=== PATIENT | male | born 1990 | race Caucasian/White ===

== ENCOUNTER 2017-05-06 10:31 | Emergency (ER) | payer OTHER ==
[~2017-05-06] VITALS: Ht 167.6 cm; Wt 68.0 kg
[2017-05-06 10:35] VITALS: BP 146/81; Ht 167.6 cm; Wt 68.0 kg
== END 2017-05-06 11:05 | disposition other institution (70) ==
LOC: ED 10:31
DX: Z02.89 Encounter for other administrative examinations (principal)

== ENCOUNTER 2017-07-06 15:48 | Emergency (ER) | payer MEDICAID ==
[~2017-07-06] VITALS: Ht 167.6 cm; Wt 65.4 kg
[2017-07-06 16:00] VITALS: Ht 167.6 cm; Wt 65.4 kg
[2017-07-06 18:27] LABS: BASOPHIL % 0.4 % (0-2); PLATELET COUNT 356 x10^3mcL (130-400); RED CELL DISTRIBUTION WIDTH 13.5 % (11.5-14.5)
[2017-07-06 18:32] LABS: CARBON DIOXIDE 27.8 mmol/L (21-32); CHLORIDE SERUM 103 mmol/L (98-107); CREATININE SERUM 0.8 mg/dL (0.7-1.3); GFR1 > 60 mL/min; GLUCOSE SERUM 98 mg/dL (74-106); SODIUM SERUM 140 mmol/L (136-145)
[2017-07-06 18:44] LABS: microscopic required? NO
[2017-07-06 19:17] LABS: urine erythrocyte NEGATIVE (NEGATIVE)
[2017-07-06 21:38] VITALS: BP 108/66
== END 2017-07-06 21:38 | disposition home or self-care (01) ==
LOC: ED 15:48
PROVIDERS: Emergency Medicine
DX: K59.00 Constipation, unspecified (principal); Z88.0 Allergy status to penicillin
CPT/HCPCS: J2270; J7030; Q0092

== ENCOUNTER 2017-08-16 20:18 | Emergency (ER) | payer MEDICAID ==
[~2017-08-16] VITALS: Ht 152.4 cm; Wt 67.6 kg
[2017-08-16 21:36] VITALS: BP 145/84
== END 2017-08-16 21:36 | disposition home or self-care (01) ==
LOC: ED 20:18
DX: F41.9 Anxiety disorder, unspecified (principal); F11.23 Opioid dependence with withdrawal; Z88.0 Allergy status to penicillin; F12.10 Cannabis abuse, uncomplicated
CPT/HCPCS: 99406

== ENCOUNTER 2017-09-05 14:45 | Emergency (ER) | payer MEDICAID ==
[~2017-09-05] VITALS: Ht 167.6 cm; Wt 65.8 kg
[2017-09-05 14:54] VITALS: Ht 167.6 cm; Wt 65.8 kg
[2017-09-05 16:58] VITALS: BP 115/75
== END 2017-09-05 16:58 | disposition other institution (70) ==
LOC: ED 14:45
DX: F19.10 Other psychoactive substance abuse, uncomplicated (principal); F41.9 Anxiety disorder, unspecified; Z88.0 Allergy status to penicillin
CPT/HCPCS: J2310

== ENCOUNTER 2017-09-05 14:45 | Emergency (ER) | payer OTHER | END 2017-09-05 16:26 | disposition other institution (70) | LOC: ED 14:45 | DX: Z02.89 Encounter for other administrative examinations (principal) ==